=== PATIENT | female | born 1960 | race Caucasian/White ===

== ENCOUNTER 2021-05-31 08:43 | Outpatient (CLI) | payer OTHER | END 2021-05-31 09:15 | disposition home or self-care (01) | LOC: MAMO-SONO 08:43 | PROVIDERS: ATTEND Obstetrics & Gynecology Gynecology | DX: N60.42 Mammary duct ectasia of left breast (principal); R92.1 Mammographic calcification found on diagnostic imaging of breast; Z12.31 Encounter for screening mammogram for malignant neoplasm of breast; N64.4 Mastodynia; N64.59 Other signs and symptoms in breast ==